=== PATIENT | male | born 1960 | race Two or more races ===

== ENCOUNTER 2021-07-11 05:24 | Inpatient (IN) | payer OTHER ==
[~2021-07-11] VITALS: Ht 172.7 cm; Wt 79.3 kg
[2021-07-11 05:36] LABS: BASOPHILS % (AUTO) 0.7 % (0.0-2.0); EOSINOPHILS % (AUTO) 1.6 % (1.0-6.0); HEMATOCRIT 44.9 % (41-53); HEMOGLOBIN 14.8 g/dL (13.5-17.5); LYMPHOCYTES # (AUTO) 2.6 K/uL (1.0-4.8); LYMPHOCYTES % (AUTO) 27.1 % (22.0-44.0); MEAN CORPUSCULAR HEMOGLOBIN 27.8 pg (26.0-34.0); MEAN CORPUSCULAR HGB CONC 33.1 G/dL (31.0-37.0); MEAN CORPUSCULAR VOLUME 84 fL (80-100); MONOCYTES # (AUTO) 0.7 K/uL (0.1-1.0); MONOCYTES % (AUTO) 7.2 % (2.0-9.0); NEUTROPHILS % (AUTO) 63.4 % (40.0-70.0); PLATELET COUNT (AUTO) 208 K/uL (150-450); RED BLOOD CELL COUNT(AUTO) 5.35 MIL/uL (4.50-5.90); RED CELL DISTRIBUTION WIDTH 14.3 % (11.5-14.5)
[2021-07-11 05:46] LABS: ANION GAP 9 mmol/L (8-16); CALCIUM, TOTAL 8.8 mg/dL (8.8-10.5); CARBON DIOXIDE 29 mmol/L (22-29); CHLORIDE 102 mmol/L (98-107); CREATININE 0.84 mg/dL (0.60-1.30); GLOMERULAR FILTR. RATE CALC > 60 mL/min (>60); GLUCOSE,RANDOM 130 mg/dL (70-110); POTASSIUM 3.7 mmol/L (3.5-5.1); SODIUM SERUM 140 mmol/L (136-145); UREA NITROGEN, BLOOD 16 mg/dL (7-18)
[2021-07-11] MEDS ORDERED: SODIUM CHLORIDE 0.9% 100 ML ONE (05:48)
[2021-07-11] MEDS ORDERED: IOHEXOL 350 MG/ML 100 ML VIAL ONE (05:49)
[2021-07-11] MEDS ORDERED: LABETALOL HCL 5 MG/ML 20 ML VIAL IVP ONE ×2 (05:49→06:00)
[2021-07-11 05:52] LABS: ALANINE AMINOTRANSFERASE 26 U/L (12-78); ALBUMIN 4.2 g/dL (3.4-5.0); ALKALINE PHOSPHATASE 68 U/L (46-116); ASPARTATE AMINOTRANSFERASE 19 U/L (15-37); BILIRUBIN,TOTAL 0.5 mg/dL (0.1-1.0); PROTHROMBIN TIME 10.8 SEC (9.4-11.6); TOTAL PROTEIN, SERUM 7.6 g/dL (6.4-8.2)
[2021-07-11] MEDS ORDERED: ALTEPLASE PER STROKE PROTOCOL CLINICAL ONE (06:30)
[2021-07-11] MEDS ORDERED: ALTEPLASE 7.6 MG in WATER FOR INJECTION,STERILE 7.6 ML IV ONE (06:30)
[2021-07-11] MEDS ORDERED: ALTEPLASE 68.5 MG in WATER FOR INJECTION,STERILE 68.5 ML IV ONE (06:35)
[2021-07-11] MEDS ORDERED: 0.9% SODIUM CHLORIDE 10 ML SYRINGE IVP PRN (07:00)
[2021-07-11] MEDS ORDERED: ONDANSETRON HCL 4 MG/2 ML VIAL IVP PRN ×2 (07:00→07:15)
[2021-07-11 07:15] LABS: COVID AG,FIA SOURCE NASOPHARYNGEAL
[2021-07-11] MEDS ORDERED: ACETAMINOPHEN 325 MG TABLET PO PRN (07:15)
[2021-07-11] MEDS ORDERED: BISACODYL 10 MG RECTAL RECTAL SUPPOSITORY PR PRN (07:15)
[2021-07-11] MEDS ORDERED: HydrALAZINE HCL 20 MG/ML VIAL IVP PRN (07:30)
[2021-07-11] MEDS: PANTOPRAZOLE SODIUM 40 MG/VIAL IVP SCH (09:12)
[2021-07-11 13:20] VITALS: BP 139/61
[2021-07-11] MEDS ORDERED: ATEN-73 PO (14:17)
[2021-07-11] MEDS ORDERED: ASPI-1450 PO (14:17)
[2021-07-11 16:00] VITALS: BP 139/63
[2021-07-11 20:00] VITALS: BP 134/74
[2021-07-12 00:20] VITALS: BP 119/60
[2021-07-12 04:00] VITALS: BP 115/64
[2021-07-12 08:00] VITALS: BP 121/54
[2021-07-12] MEDS ORDERED: ASPIRIN 81 MG CHEWABLE TABLET PO SCH (09:00)
[2021-07-12] MEDS: ATORVASTATIN CALCIUM 40 MG TABLET PO SCH (09:23)
[2021-07-12] MEDS: PANTOPRAZOLE SODIUM 40 MG/VIAL IVP SCH (09:23)
[2021-07-12 12:00] VITALS: BP 127/66
[2021-07-12 17:14] VITALS: BP 127/73
[2021-07-12 20:00] VITALS: BP 124/68
[2021-07-13 00:32] VITALS: BP 126/72
[2021-07-13] MEDS: HEPARIN SODIUM,PORCINE 5,000 UNITS/ML VIAL SQ SCH ×3 (05:55→08:23)
[2021-07-13 07:34] VITALS: BP 147/64
[2021-07-13] MEDS: ATORVASTATIN CALCIUM 40 MG TABLET PO SCH (08:22)
[2021-07-13] MEDS: PANTOPRAZOLE SODIUM 40 MG/VIAL IVP SCH (08:23)
[2021-07-13] MEDS ORDERED: CLOPIDOGREL BISULFATE 75 MG TABLET PO SCH (09:00)
[2021-07-13] MEDS ORDERED: ASPIRIN 325 MG TABLET PO SCH (09:00)
[2021-07-13 09:17] LABS: CHOL/HDL RATIO 2.7 (4.2-7.3); CHOLESTEROL 149 mg/dL (131-200); HDL CHOLESTEROL 56 mg/dL (40-60); LDL CHOL (CALC.) 78 mg/dL (0-130); TRIGLYCERIDES 74 mg/dL (15-150)
[2021-07-13 12:00] VITALS: BP 132/70
[2021-07-13] MEDS ORDERED: CLOP75TA60 PO ×2 (12:27→12:33)
[2021-07-13] MEDS ORDERED: ATOR40TA28 PO (12:27)
[2021-07-13 13:41] LABS: EOSINOPHILS % (AUTO) 1.5 % (1.0-6.0); HEMATOCRIT 46.2 % (41-53); HEMOGLOBIN 14.8 g/dL (13.5-17.5); LYMPHOCYTES # (AUTO) 1.3 K/uL (1.0-4.8); LYMPHOCYTES % (AUTO) 17.1 % (22.0-44.0); MEAN CORPUSCULAR HEMOGLOBIN 27.6 pg (26.0-34.0); MEAN CORPUSCULAR HGB CONC 32.1 G/dL (31.0-37.0); MEAN CORPUSCULAR VOLUME 86 fL (80-100); MONOCYTES # (AUTO) 0.7 K/uL (0.1-1.0); MONOCYTES % (AUTO) 8.9 % (2.0-9.0); NEUTROPHILS # (AUTO) 5.2 K/uL (1.8-7.7); NEUTROPHILS % (AUTO) 71.5 % (40.0-70.0); PLATELET COUNT (AUTO) 206 K/uL (150-450); RED BLOOD CELL COUNT(AUTO) 5.38 MIL/uL (4.50-5.90); RED CELL DISTRIBUTION WIDTH 14.5 % (11.5-14.5)
[2021-07-13 13:45] LABS: ANION GAP 12 mmol/L (8-16); CALCIUM, TOTAL 8.8 mg/dL (8.8-10.5); CARBON DIOXIDE 25 mmol/L (22-29); CHLORIDE 103 mmol/L (98-107); CREATININE 0.87 mg/dL (0.60-1.30); GLOMERULAR FILTR. RATE CALC > 60 mL/min (>60); GLUCOSE,RANDOM 106 mg/dL (70-110); POTASSIUM 4.3 mmol/L (3.5-5.1); SODIUM SERUM 140 mmol/L (136-145); UREA NITROGEN, BLOOD 15 mg/dL (7-18)
[2021-07-13 16:00] VITALS: BP 120/61
== END 2021-07-13 16:45 | disposition home or self-care (01) | DRG 62 ==
LOC: EMS 05:24 → EDBD 05:24 → ICU 13:20 → 5S 07-12 16:22
PROVIDERS: ADMIT Internal Medicine; ATTEND Internal Medicine
DX: I63.9 Cerebral infarction, unspecified (principal); G81.94 Hemiplegia, unspecified affecting left nondominant side; I16.1 Hypertensive emergency; G81.91 Hemiplegia, unspecified affecting right dominant side; E78.5 Hyperlipidemia, unspecified; R56.9 Unspecified convulsions; I10 Essential (primary) hypertension; R47.01 Aphasia; Z20.822 Contact with and (suspected) exposure to COVID-19; Z79.82 Long term (current) use of aspirin
CPT/HCPCS: 70496; 70498; 70551; 71045; 80048; 80053; 80061; 84484; 85025; 85610; 85730; 86850; 86900; 86901; 87081; 92526; 92610; 93005; 93306; 93880; 97116; 97161; 97165; 97535; 99291; 99292; C9113; G0378; J1644; J2997; J3490; J7050; Q9967; 36415-L1; 36415-TC; 70450; 70450-TC

== ENCOUNTER 2022-07-02 01:19 | Emergency (ER) | payer OTHER ==
[~2022-07-02] VITALS: Ht 167.6 cm; Wt 77.2 kg
[~2022-07-02 01:19] MED LIST: ASPI-1450 PO; ATOR40TA28 PO; CLOP75TA60 PO
[2022-07-02 02:07] LABS: APPEARANCE,URINE CLEAR (CLEAR); BILIRUBIN,URINE NEGATIVE (NEGATIVE); GLUCOSE, URINE (UA) NEGATIVE (NEGATIVE); KETONES,URINE NEGATIVE (NEGATIVE); LEUKOCYTE ESTERASE ,URINE NEGATIVE (NEGATIVE); NITRATE,URINE NEGATIVE (NEGATIVE); OCCULT BLOOD,URINE LARGE (NEGATIVE); PH,URINE 5.5 (5.0-8.0); PROTEIN,URINE NEGATIVE (NEGATIVE); SPECIFIC GRAVITIY, URINE 1.009 (1.003-1.030); UROBILINOGEN,URINE <=1.0 mg/dL (<=1.0)
[2022-07-02 03:04] LABS: AMPHET/METH SCREEN,URINE NEGATIVE (NEGATIVE); BARBITURATE SCREEN, URINE NEGATIVE (NEGATIVE); BENZODIAZEPINES SCREEN,URINE NEGATIVE (NEGATIVE); CANNABINOID SCREEN,URINE NEGATIVE (NEGATIVE); COCAINE SCREEN,URINE NEGATIVE (NEGATIVE); METHADONE SCREEN, URINE NEGATIVE (NEGATIVE); PHENCYCLIDINE SCREEN,URINE NEGATIVE (NEGATIVE)
[2022-07-02 03:17] LABS: BACTERIA,URINE None Seen /HPF (None Seen); SQUAMOUS EPITHELIAL CELL,UR Few /LPF (None Seen); WBC,URINE 0-2 /HPF (0-5)
[2022-07-02 03:30] VITALS: BP 129/71
[2022-07-02 05:30] LABS: OPIATE SCREEN,URINE NEGATIVE (NEGATIVE)
== END 2022-07-02 03:30 | disposition home or self-care (01) ==
LOC: EMS 01:20
DX: R33.9 Retention of urine, unspecified (principal)
CPT/HCPCS: 51702; 80307; 81001; 99284